=== PATIENT | male | born 1950 ===

== ENCOUNTER 2018-03-30 14:10 | Emergency (ER) | payer MEDICAID, OTHER ==
[2018-03-30 14:36] VITALS: PULSE 98; RESP 18; TEMP 98; O2SAT 98
--- NOTE | 2018-03-30 16:03 | C.PDOC ---
History Of Present Illness 68 year old male, whose PMHx includes HTN, presents to the ED for evaluation of elevated blood pressure noted prior to arrival. Patient checked his blood pressure at 1100 today, and noted it to be 180 systolic. Patient then took two cloves of garlic. Patient had blood pressure of 160 systolic upon ED arrival. Patient states he has been non-compliant with his medication (name unknown) because of insurance issues. He does not regularly follow up with a PMD. Patient denies chest pain, shortness of breath, headache. Time Seen by Provider: 03/30/18 15:23 Chief Complaint (Nursing): High Blood Pressure History Per: Patient History/Exam Limitations: no limitations Onset/Duration Of Symptoms: Hrs Current Symptoms Are (Timing): Better Associated Symptoms: denies: Chest Pain, Headache Exacerbating Factor(s): Pos: Recently Missed Doses Of Medication Additional History Per: Patient Past Medical History Reviewed: Historical Data, Nursing Documentation, Vital Signs Vital Signs: Last Vital Signs Temp 98 F 03/30/18 14:33 Pulse 98 H 03/30/18 14:33 Resp 18 03/30/18 14:33 BP 166/96 H 03/30/18 14:33 Pulse Ox 98 03/30/18 14:33 - Medical History PMH: Back Problems, Diabetes, HTN Surgical History: No Surg Hx Family History: States: Unknown Family Hx - Social History Hx Tobacco Use: No Hx Alcohol Use: No Hx Substance Use: No - Immunization History Hx Tetanus Toxoid Vaccination: No Hx Influenza Vaccination: No Hx Pneumococcal Vaccination: No Review Of Systems Constitutional: Positive for: Other (elevated blood pressure ) Cardiovascular: Negative for: Chest Pain Respiratory: Negative for: Shortness of Breath Neurological: Negative for: Headache Physical Exam - Physical Exam Appears: Non-toxic, No Acute Distress Skin: Normal Color, Warm, Dry Head: Atraumatic, Normacephalic Eye(s): bilateral: Normal Inspection Oral Mucosa: Moist Neck: Supple Chest: Symmetrical, No Deformity, No Tenderness Cardiovascular: Rhythm Regular, No Murmur Respiratory: Normal Breath Sounds, No Rales, No Rhonchi, No Wheezing Extremity: Normal ROM, Capillary Refill (less than 2 seconds ) Neurological/Psych: Oriented x3, Normal Speech, Normal Cognition ED Course And Treatment ECG: Interpreted By Me, Viewed By Me ECG Rhythm: Sinus Bradycardia Interpretation Of ECG: Normal intervals, normal axis. PAC. No ST/T wave changes. Rate From EC O2 Sat by Pulse Oximetry: 98 (on RA) Pulse Ox Interpretation: Normal Medical Decision Making Medical Decision Making: Assessment: hypertension Plan: * EKG * reassess and disposition Progress: EKG ordered and reviewed. Repeat BP was 161/87. Pt is unsure of what medication he takes for BP. Will prescribe Norvasc and advise to f/u with PMD. Disposition - Disposition Disposition: HOME/ ROUTINE Disposition Time: 16:29 Condition: STABLE Additional Instructions: follow up with your doctor within 2 days call to make an appointment take blood pressure medication as prescribed return to ER if symptoms worsens or progress Prescriptions: amLODIPine [Norvasc] 5 mg PO DAILY #30 tab Instructions: High Blood Pressure in Adults Forms: [facility] (British), General Discharge Instructions - Clinical Impression Clinical Impression: Hypertension - Scribe Statement The provider has reviewed the documentation as recorded by the Scribe (Karolyn Tomlinson) Provider Attestation: All medical record entries made by the Scribe were at my direction and personally dictated by me. I have reviewed the chart and agree that the record accurately reflects my personal performance of the history, physical exam, medical decision making, and the department course for this patient. I have also personally directed, reviewed, and agree with the discharge instructions and disposition.
[2018-03-30 16:53] VITALS: BP 161/87
== END 2018-03-30 16:52 | disposition home or self-care (01) ==
LOC: C.ER 14:10
DX: I10 Essential (primary) hypertension (principal); E11.9 Type 2 diabetes mellitus without complications

== ENCOUNTER 2018-03-31 01:39 | Emergency (ER) | payer SELFPAY ==
[2018-03-31 01:53] VITALS: TEMP 98.6
--- NOTE | 2018-03-31 02:10 | C.PDOC ---
History Of Present Illness 68 year old male presents to the ED with high blood pressure. He states he checked his blood pressure at home, saw it was 200, and was encouraged by his family to come in. Patient has a history of hypertension and was in the ED for i t recently; he was given blood pressure medication, which he is currently taking. Denies dizziness, vision changes and headache. Time Seen by Provider: 03/31/18 01:53 Chief Complaint (Nursing): High Blood Pressure History Per: Patient History/Exam Limitations: no limitations Onset/Duration Of Symptoms: Hrs Current Symptoms Are (Timing): Still Present Associated Symptoms: denies: Chest Pain, Dizziness, Blurred Vision, Headache Quality Of Symptoms: Asymptomatic Exacerbating Factor(s): Pos: None Recent travel outside of the [place]: No Past Medical History Reviewed: Historical Data, Nursing Documentation, Vital Signs Vital Signs: Last Vital Signs Temp 98.6 F 03/31/18 01:51 Pulse 58 L 03/31/18 01:51 Resp 16 03/31/18 01:51 BP 169/92 H 03/31/18 01:51 Pulse Ox 99 03/31/18 01:51 - Medical History PMH: Back Problems, Diabetes, HTN Family History: States: Unknown Family Hx - Social History Hx Tobacco Use: No Hx Alcohol Use: No Hx Substance Use: No - Immunization History Hx Tetanus Toxoid Vaccination: No Hx Influenza Vaccination: No Hx Pneumococcal Vaccination: No Review Of Systems Constitutional: Negative for: Fever Eyes: Negative for: Vision Change Cardiovascular: Negative for: Chest Pain, Palpitations Respiratory: Negative for: Shortness of Breath Gastrointestinal: Negative for: Nausea, Vomiting Neurological: Negative for: Headache, Dizziness Physical Exam - Physical Exam Appears: Well, Non-toxic, No Acute Distress Skin: Warm, Dry Head: Atraumatic, Normacephalic Eye(s): bilateral: Normal Inspection, EOMI Nose: Normal Neck: Normal, Supple Chest: Symmetrical, No Tenderness Cardiovascular: Rhythm Regular Respiratory: Normal Breath Sounds, No Rales, No Rhonchi, No Wheezing Gastrointestinal/Abdominal: Soft, No Tenderness Extremity: Bilateral: Atraumatic, No Pedal Edema, Normal ROM Neurological/Psych: Oriented x3, Normal Speech Gait: Steady ED Course And Treatment - Laboratory Results Result Diagrams: 03/31/18 02:25 03/31/18 02:25 Lab Interpretation: No Acute Changes ECG: Interpreted By Me, Viewed By Me ECG Rhythm: Sinus Rhythm, R BBB ECG Interpretation: No Acute Changes Rate From EC O2 Sat by Pulse Oximetry: 99 (RA) Pulse Ox Interpretation: Normal Medical Decision Making Medical Decision Making: impresion: high blood pressure Plan: -CXR -Labs Labs reviewed and unremarkable, negative troponin. CXR shows no active disease. Patient remained alert and oriented in no distress. 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 Blood pressure was controlled. Discuss with patient lifestyle and diet to help maintain BP. Patient understands will continue medication and follow up in the clinic Disposition Counseled Patient/Family Regarding: Studies Performed, Diagnosis, Need For Followup - Disposition Referrals: Shyla Armas MD [Staff Provider] - Disposition: HOME/ ROUTINE Disposition Time: 03:40 Condition: STABLE Additional Instructions: Odette medicamentos para la presin arterial todos los ledesma. Seguimiento en la clnica. Instructions: High Blood Pressure (DC), Controlling Your Blood Pressure Through Lifestyle Forms: [employer] (Malawian) Print Language: KAZAKH - POA Present On Arrival: None - Clinical Impression Clinical Impression: Hypertension - PA / CAMPUS RECRUITING INTERN / Resident Statement MD/DO has reviewed & agrees with the documentation as recorded. - Scribe Statement The provider has reviewed the documentation as recorded by the Scribe (Tommy Ruiz) All medical record entries made by the Scribe were at my direction and pe rsonally dictated by me. I have reviewed the chart and agree that the record accurately reflects my personal performance of the history, physical exam, medical decision making, and the department course for this patient. I have also personally directed, reviewed, and agree with the discharge instructions and disposition.
[2018-03-31 02:30] LABS: BASO % 0.6 % (0.0-2.0); EOS # 0.1 K/uL (0.0-0.7); EOS % 0.8 % (0.0-4.0); HEMOGLOBIN 15.7 g/dL (12.0-18.0); LYMPH # 2.1 K/uL (1.0-4.3); MEAN CELL VOLUME 80.2 fL (80.0-94.0); MEAN CORPUSCULAR HGB CONC 33.6 g/dL (33.0-37.0); MEAN PLATELET VOLUME 7.6 fL (7.2-11.7); MONO # 0.6 K/uL (0.0-0.8); MONO % 8.4 % (0.0-10.0); NEUT # 4.2 K/uL (1.8-7.0); NEUT % 60.2 % (50.0-75.0); NRBC % 0.1 % (0.0-2.0); RBC 5.83 Mil/uL (4.40-5.90); RED CELL DISTRIBUTION WIDTH 13.9 % (11.5-14.5)
[2018-03-31 02:34] LABS: INR 1.2; PROTHROMBIN TIME 13.4 SECONDS (9.7-12.2)
[2018-03-31 02:39] LABS: ALB/GLOB RATIO 1.6 (1.0-2.1); ALBUMIN 4.7 g/dL (3.5-5.0); ALT/SGPT 38 U/L (21-72); AST/SGOT 26 U/L (17-59); BLOOD UREA NITROGEN 15 mg/dL (9-20); CALCIUM 9.5 mg/dl (8.6-10.4); GFR NON-AFRICAN AMERICAN > 60
[2018-03-31 03:58] VITALS: BP 140/80; PULSE 80; RESP 14
[2018-03-31 04:13] VITALS: O2SAT 99
--- NOTE | 2018-03-31 09:16 | RAD ---
HISTORY: SOB COMPARISON: No prior. TECHNIQUE: Chest PA and lateral FINDINGS: Examination limited by habitus and hypoinflation. LUNGS: No focal consolidation. Please note that chest x-ray has limited sensitivity for the detection of pulmonary masses. PLEURA: No significant pleural effusion identified. No definite pneumothorax . CARDIOVASCULAR: Heart size appears within normal limits. Ectatic aorta. OSSEOUS STRUCTURES: Degenerative changes. VISUALIZED UPPER ABDOMEN: Mild elevation of the right hemidiaphragm. OTHER FINDINGS: None. IMPRESSION: No focal consolidation, significant pleural effusion, or definite pneumothorax identified.
--- NOTE | 2018-04-02 20:44 | CARD ---
APPROVED REPORT Date of service: 03/30/2018 EKG Measurement Heart [id number] ID [id number] <Conclusion> Sinus bradycardia with premature supraventricular complexes Incomplete right bundle branch block Borderline ECG
--- NOTE | 2018-04-02 21:44 | CARD ---
APPROVED REPORT Date of service: 03/31/2018 EKG Measurement Heart [id number] <Conclusion> Normal sinus rhythm Left axis deviation Incomplete right bundle branch block Abnormal ECG
== END 2018-03-31 03:59 | disposition home or self-care (01) ==
LOC: C.ER 01:39
DX: I10 Essential (primary) hypertension (principal); E11.9 Type 2 diabetes mellitus without complications